=== PATIENT | male | born 1970 | race Caucasian/White ===

== ENCOUNTER 2017-04-18 23:45 | Emergency (ER) | payer OTHER ==
[2017-04-19 00:04] VITALS: BP 124/79; PULSE 92; BMI 39.4
--- NOTE | 2017-04-19 00:44 | PDOC ---
History of Present Illness - General Chief Complaint: Pain Stated Complaint: FOOT INJURY Time Seen by Provider: 04/18/17 23:55 History Source: Patient Exam Limitations: No Limitations - History of Present Illness Initial Comments: 04/19/17 00:39 46yo Male patient w/ PmHx: HTN presents to ED c/o right foot swelling. Patient states symptoms began this morning while getting out of bed. He reports, he was able to ambulate to bathroom, and soak foot in Epsom salt with some relief. Patient then proceeded to elevate leg and swelling subsided. Patient then states he put on his sneakers and went out for a while, when he returned home, symptoms return. He denies CP, Abd pain, calf pain, foot injury, fall or any other complaints at this time. Occurred: reports: this morning. denies: just prior to arrival, this afternoon , this evening, yesterday, last week, other Severity: Yes: moderate Lower Extremity Pain Location: right: foot Method of Injury: Yes: other (See HPI). No: unknown, assault, burn, direct blow , fell, incised, motor vehicle accident, sports injury, twisted Modifying Factors: improves with: rest. worse with: None, cold therapy, immobilization, pain medication, other Associated Symptoms: See HPI Lower Ext. Injury Location - Specific Injury Location Foot: right foot soft tissue tenderness, right foot pain, right foot swelling, left foot non-tender, bilateral foot no evidence of injury, bilateral foot normal inspection, bilateral foot normal range of motion Extremity Pain Location - Extremity Pain Location Extremity Pain Locations: right: foot Past History - Travel Traveled outside of the country in the last 30 days: No Close contact w/someone who was outside of country & ill: No - Past Medical History Allergies/Adverse Reactions: Allergies Allergy/AdvReac Type Severity Reaction Status Date / Time No Known Allergies Allergy Verified 04/19/17 00:03 Home Medications: Ambulatory Orders Ibuprofen 800 mg PO Q6H PRN #30 tablet 04/19/17 Lisinopril/Hydrochlorothiazide [Lisinopril-Hctz 10-12.5 mg Tab] 1 each PO ASDIR 04/19/17 Tramadol HCl 50 mg PO Q8H PRN #12 tablet MDD 3 tabs 04/19/17 COPD: No HTN: Yes - Suicide/Smoking/Psychosocial Hx Smoking Status: Yes Smoking History: Never smoked Number of Cigarettes Smoked Daily: 10 Review of Systems - Review of Systems Able to Perform ROS?: Yes Is the patient limited Urdu proficient: No Musculoskeletal: Yes: Other (Right foot swelling.) All Other Systems: Reviewed and Negative *Physical Exam - Vital Signs Last Vital Signs Temp Pulse Resp BP Pulse Ox 92 H 16 124/79 97 04/19/17 00:03 04/19/17 00:03 04/19/17 00:03 04/19/17 00:03 - Physical Exam General Appearance: Yes: Nourished, Appropriately Dressed. No: Apparent Distress, Mild Distress, Moderate Distress, Severe Distress Neck: positive: Trachea midline, Supple. negative: Lymphadenopathy (R), Lymphadenopathy (L), Tender lateral, Tender midline Respiratory/Chest: positive: Lungs Clear, Normal Breath Sounds. negative: Chest Tender, Respiratory Distress, Accessory Muscle Use, Labored Respiration, Rapid RR, Decreased Breath Sounds, Paradoxal Breathing, Rhonchi, Stridor, Wheezing Cardiovascular: positive: Regular Rhythm, Regular Rate Musculoskeletal: positive: Normal Inspection. negative: CVA Tenderness, Decreased Range of Motion, Vertebral Tenderness Extremity: positive: Normal Capillary Refill, Normal Inspection, Normal Range of Motion, Tender, Swelling, Erythema Integumentary: positive: Normal Color, Dry, Warm, Erythema. 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 NML intact, Fully Oriented, Alert, Normal Mood/ Affect, Normal Response, Motor Strength 5/5 ED Treatment Course - RADIOLOGY Radiology Studies Ordered: Category Date Time Status FOOT-RIGHT [RAD] Stat Radiology 04/19/17 00:30 Ordered *DC/Admit/Observation/Transfer Diagnosis at time of Disposition: Plantar fasciitis of right foot - Discharge Dispostion Disposition: HOME Condition at time of disposition: Stable Admit: No - Prescriptions Prescriptions: Ibuprofen 800 mg PO Q6H PRN #30 tablet PRN Reason: Pain Tramadol HCl 50 mg PO Q8H PRN #12 tablet MDD 3 tabs PRN Reason: Severe Pain - Referrals Referrals: Crescencio Lozada [Staff Physician] - - Patient Instructions Printed Discharge Instructions: DI for Plantar Fasciitis Additional Instructions: Jannie un seguimiento con el Crescencio Spain (Podiatra) con respecto a toney visita a la dashawn de emergencias. Llame para programar saray fabricio. [place] los medicamentos segn lo recetado. [place] remojando el pie en agua tibia con maria antonia de Epsom. Eleve el pie cuando descanse. Evite estar parado por mucho tiempo. Use calzado de apoyo con arco. Devuelva si alguna preocupacin para saray evaluaci n adicional. No conduzca, estuardo alcohol ni opere maquinaria pesada mientras lissa Tramadol. Follow up with Crescencio [place] (Podiatry) regarding your emergency room visit. Call to schedule appointment. Take medications as prescribed. Continue to soak foot in warm water with epsom salt. Elevate foot when rest. Avoid prolonged standing. Wear supportive footwear with arch. Return if any concerns for further evaluation. Do not drive, drink alcohol, or operate heavy machinery while taking Tramadol. Print Language: MONGOLIAN - Post Discharge Activity
== END 2017-04-19 03:44 | disposition home or self-care (01) ==
LOC: JER 23:45
DX: M72.2 Plantar fascial fibromatosis (principal); I10 Essential (primary) hypertension
CPT/HCPCS: 73630-TC-RT; 93971-TC; 99281-25

== ENCOUNTER 2018-12-22 20:41 | Emergency (ER) | payer OTHER ==
[2018-12-22] MEDS ORDERED: CYCLOBENZAPRINE HCL 10 MG TABLET (FP) PO ONE ×2 (20:48→21:32)
[2018-12-22] MEDS ORDERED: KETOROLAC TROMETHAMINE 60 MG/2 ML VIAL IM ONE (20:48)
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
[2018-12-22 20:49] VITALS: BP 144/94; PULSE 80; TEMP 98.1; BMI 37.3
[2018-12-22] MEDS ORDERED: CYCLOBENZAPRINE HCL 10 MG TABLET (FP) ONE (21:29)
[2018-12-22] MEDS ORDERED: KETOROLAC TROMETHAMINE 60 MG/2 ML VIAL ONE (21:29)
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
== END 2018-12-22 22:08 | disposition home or self-care (01) ==
LOC: JERFT 20:41
PROC: 3E0233Z Introduction of Anti-inflammatory into Muscle, Percutaneous Approach (ICD-10-PCS; principal; 2018-12-22)
DX: S29.012A Strain of muscle and tendon of back wall of thorax, initial encounter (principal); I10 Essential (primary) hypertension; F17.210 Nicotine dependence, cigarettes, uncomplicated; X58.XXXA Exposure to other specified factors, initial encounter; Y93.9 Activity, unspecified; Y92.9 Unspecified place or not applicable
CPT/HCPCS: 99282-25